=== PATIENT | female | born 2005 | race Caucasian/White ===

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

== ENCOUNTER 2023-04-24 07:57 | Outpatient (CLI) | payer BC ==
[~2023-04-24] VITALS: Ht 162.6 cm; Wt 60.2 kg
[2023-04-24 08:28] VITALS: BP 125/96; PULSE 88; TEMP 98.2
[2023-04-24] MEDS ORDERED: NS Flush 10 ML SYRINGE PRN ICA (08:30)
[2023-04-24] MEDS ORDERED: INDERAL60 MG PO (08:37)
[2023-04-24] MEDS ORDERED: ISIBLOOM 28 DA1 EACH PO (08:37)
[2023-04-24] MEDS ORDERED: NS Flush 10 ML SYRINGE BID ICA SCH (09:00)
[2023-04-24 10:15] VITALS: BP 134/101; PULSE 92
[2023-04-24 10:25] VITALS: BP 119/91; PULSE 95
--- NOTE | 2023-04-24 11:51 | NUR ---
pt tolerated recovery period well, pt was assisted to main lobby upon discharge and IV was discontinued. pt free from acute concerns and complaints upon discharge and vs remained within normal limits.
== END 2023-04-24 11:00 | disposition home or self-care (01) ==
LOC: COL.CAR 07:57
DX: R00.0 Tachycardia, unspecified (principal); R00.2 Palpitations; R07.9 Chest pain, unspecified; R42 Dizziness and giddiness; R55 Syncope and collapse

== ENCOUNTER 2023-12-11 09:39 | Day surgery (SDC) | payer BC ==
[~2023-12-11] VITALS: Ht 170.2 cm; Wt 57.5 kg
[~2023-12-11 09:39] MED LIST changes: +INDERAL60 MG PO; +ISIBLOOM 28 DA1 EACH PO; +LR 1,000 ML IV SCH
[2023-12-11] MEDS ORDERED: Ondansetron 4 MG/2 ML VIAL IV PRN (09:45)
[2023-12-11] MEDS ORDERED: TOPROL XL 25MG25 MG PO (10:20)
[2023-12-11 10:32] VITALS: BP 116/82; PULSE 95; TEMP 96.8
[2023-12-11 12:15] VITALS: BP 103/57; PULSE 89; TEMP 97
[2023-12-11 12:30] VITALS: BP 103/60; PULSE 80
--- NOTE | 2023-12-11 14:02 | NUR ---
1215:PT TO BAY 5 FROM ENDO SUITE. AMBULATED FROM CART TO RECLINER X2 ASSIST. REPORT RECEIVED FROM ENDO NURSE. PT ALERT AND ORIENTED. DENIES PAIN OR NAUSEA. REQUESTING JUICE. RESTING IN RECLINER. CALL LIGHT IN REACH. FAMILY AT BEDSIDE. 1225: DR. LION IN ROOM TO SPEAK WITH PT. 1230: PT ALERT AND ORIENTED. TOLERATING JUICE. DENIES PAIN AND NAUSEA. RESTING IN RECLINER. CALL LIGHT IN REACH. FAMILY AT BEDSIDE. 1235: DISCHARGE EDUCATION DONE AT THIS TIME. PT STATED UNDERSTANDING OF DC INSTRUCTIONS. DC PAPERWORK GIVEN TO PT. IV DC'D AT THIS TIME. PT DENIES ASSISTANCE WITH DRESSING. 1240: PT AMBULATED INDEPENDENTLY FROM RECLINER TO WHEELCHAIR. PT OFF UNIT AT THIS TIME. PT DC TO HOME WITH FAMILY PER PERSONAL VEHICLE.
== END 2023-12-11 12:40 | disposition home or self-care (01) ==
LOC: SDCO 09:39
DX: K20.90 Esophagitis, unspecified without bleeding (principal); K29.50 Unspecified chronic gastritis without bleeding; R19.7 Diarrhea, unspecified; Z83.79 Family history of other diseases of the digestive system
CPT/HCPCS: J2704; J7120